=== PATIENT | male | born 2000 | race Caucasian/White ===

== ENCOUNTER 2023-03-31 09:21 | Emergency (ER) | payer MEDICAID ==
[~2023-03-31] VITALS: Ht 185.4 cm; Wt 109.1 kg
[2023-03-31 10:09] LABS: BASOPHILS % 0.4 % (0.0-2.0); EOSINOPHILS % 2.1 % (0.0-5.0); HEMATOCRIT. 41.6 % (42.0-52.0); HEMOGLOBIN. 14.7 g/dL (14.0-18.0); LYMPHOCYTES % 21.4 % (20.0-50.0); MEAN CORPUSCULAR HEMOGLOBIN 29.9 pg (28.0-32.0); MONOCYTES % 6.2 % (2.0-8.0); NEUTROPHILS % 69.9 % (40.0-76.0); PLATELET 340 x1000/uL (130-400); RED CELL DISTRIBUTION WIDTH 13.4 % (11.6-14.6)
[2023-03-31 10:57] LABS: CHLORIDE 106 mEq/L (98-107)
[2023-03-31 11:58] VITALS: BP 114/78
== END 2023-03-31 11:59 | disposition left against medical advice (07) ==
LOC: ER 09:21 → CANBEDREQ 20:42
DX: R07.89 Other chest pain (principal); J45.909 Unspecified asthma, uncomplicated
CPT/HCPCS: 36415; 71045; 80053; 83880; 84484; 85025; 93005; 99285; Z7610